=== PATIENT | female | born 1970 | race Caucasian/White ===

== ENCOUNTER 2017-01-19 13:57 | Emergency (ER) | payer MEDICAID ==
[2017-01-19] MEDS ORDERED: OXYCODONE-ACETAMINOPHEN 5-325 MG TABLET PO ONE (15:21)
--- NOTE | 2017-01-19 15:23 | ER Document Report ---
ED Medical Screen (RME) - General Chief Complaint: Flank Pain Stated Complaint: BACK PAIN Time Seen by Provider: 01/19/17 15:17 Notes: 46-year-old female with 2 day history of right low back pain. States gabapentin for disc bulging in her back and neck. She reports some chills and nausea. Exam shows very tender to palpate the right paravertebral lumbar back muscles and the flank back muscles over the ribs and down below the ribs. Skin does not have rash and is not sensitive. I have greeted and performed a rapid initial assessment of this patient. A comprehensive ED assessment and evaluation of the patient, analysis of test results and completion of the medical decision making process will be conducted by additional ED providers. TRAVEL OUTSIDE OF THE [place] IN LAST 30 DAYS: No - Related Data Allergies/Adverse Reactions: No Known Allergies Allergy (Verified 01/19/17 14:01) Past Medical History - Social History Family history: Arthritis, CAD, CVA, DM, Hyperlipidemia, Hypertension Pulmonary Medical History: Reports: Hx Asthma Endocrine Medical History: Reports: Hx Diabetes Mellitus Type 2 Renal/ Medical History: Denies: Hx Ovarian Cysts, Hx Peritoneal Dialysis, Hx Pelvic Inflammatory Disease Past Surgical History: Reports: Hx Tubal Ligation - Immunizations Immunizations up to date: Yes Hx Diphtheria, Pertussis, Tetanus Vaccination: Yes Physical Exam - Vital signs Vitals: Temp Pulse Resp BP Pulse Ox 98.8 F 79 20 136/84 H 99 01/19/17 14:03 01/19/17 14:03 01/19/17 14:03 01/19/17 14:03 01/19/17 14:03 Course - Vital Signs Vital signs: Temp Pulse Resp BP Pulse Ox 98.8 F 79 20 136/84 H 99 01/19/17 14:03 01/19/17 14:03 01/19/17 14:03 01/19/17 14:03 01/19/17 14:03
[2017-01-19 16:06] LABS: APPEARANCE,URINE CLEAR; BILIRUBIN,URINE NEGATIVE (NEGATIVE); GLUCOSE, URINE NEGATIVE (NEGATIVE); KETONES,URINE NEGATIVE (NEGATIVE); LEUKOCYTE ESTERASE,URINE NEGATIVE (NEGATIVE); NITRITE,URINE NEGATIVE (NEGATIVE); PROTEIN,URINE NEGATIVE (NEGATIVE); URINE SPECIFIC GRAVITY 1.003; UROBILINOGEN,URINE NEGATIVE mg/dL (<2.0)
[2017-01-19] MEDS ORDERED: LIDOCAINE 4% TOPICAL SOLN 50 ML TOP ONE (17:18)
[2017-01-19] MEDS ORDERED: NAPROXEN 250 MG TABLET PO ONE (17:18)
[2017-01-19] MEDS ORDERED: ONDANSETRON 4 MG TAB.RAPDIS PO ONE (17:18)
--- NOTE | 2017-01-19 17:22 | ER Document Report ---
ED GI/ - General Chief Complaint: Flank Pain Stated Complaint: BACK PAIN Time Seen by Provider: 01/19/17 15:17 Notes: The patient is a 46-year-old female, past medical history bulging cervical disks , bulging lumbar disc and prior kidney stones, presents with 2 days of right flank pain radiating to her groin and right low back pain with nausea. She took Motrin with some relief of her symptoms. She also was started on Neurontin last week by her primary care physician for peripheral neuropathy. She denies chest pain, shortness of breath, vomiting, dysuria, hematuria, diarrhea, constipation, difficulty walking, chest pain or shortness of breath. TRAVEL OUTSIDE OF THE [place] IN LAST 30 DAYS: No - Related Data Allergies/Adverse Reactions: No Known Allergies Allergy (Verified 01/19/17 14:01) Home Medications: Current Home Medications Gabapentin [Neurontin 300 mg Capsule] 300 mg PO Q12 01/19/17 [History] Past Medical History - General Information source: Patient - Social History Smoking Status: Never Smoker Frequency of alcohol use: None Drug Abuse: None Family History: Reviewed & Not Pertinent Pulmonary Medical History: Reports: Hx Asthma Endocrine Medical History: Reports: Hx Diabetes Mellitus Type 2 Renal/ Medical History: Reports: Hx Kidney Stones. Denies: Hx Ovarian Cysts, Hx Peritoneal Dialysis, Hx Pelvic Inflammatory Disease Past Surgical History: Reports: Hx Orthopedic Surgery - right knee, Hx Tubal Ligation - Immunizations Immunizations up to date: Yes Hx Diphtheria, Pertussis, Tetanus Vaccination: Yes Review of Systems - Review of Systems Notes: REVIEW OF SYSTEMS: CONSTITUTIONAL: -fevers, -chills EENT: -eye pain, -difficulty swallowing, -nasal congestion CARDIOVASCULAR:-chest pain, -syncope. RESPIRATORY: -cough, -SOB GASTROINTESTINAL: -abdominal pain, +nausea, -vomiting, -diarrhea GENITOURINARY: -dysuria, -hematuria MUSCULOSKELETAL: +right back pain, -neck pain SKIN: -rash or skin lesions. HEMATOLOGIC: -easy bruising or bleeding. LYMPHATIC: -swollen, enlarged glands. NEUROLOGICAL: -altered mental status or loss of consciousness, -headache, - neurologic symptoms PSYCHIATRIC: -anxiety, -depression. ALL OTHER SYSTEMS REVIEWED AND NEGATIVE. Physical Exam - Vital signs Vitals: Temp Pulse Resp BP Pulse Ox 98.8 F 79 20 136/84 H 99 01/19/17 14:03 01/19/17 14:03 01/19/17 14:03 01/19/17 14:03 01/19/17 14:03 - Notes Notes: PHYSICAL EXAMINATION: GENERAL: Mild distress. HEAD: Atraumatic, normocephalic. EYES: Pupils equal round and reactive to light, extraocular movements intact, sclera anicteric, conjunctiva are normal. ENT: nares patent, oropharynx clear without exudates. Moist mucous membranes. NECK: Normal range of motion, supple without lymphadenopathy LUNGS: Breath sounds clear to auscultation bilaterally and equal. No wheezes rales or rhonchi. HEART: Regular rate and rhythm without murmurs ABDOMEN: Soft, nontender, normoactive bowel sounds. No guarding, no rebound. No masses appreciated. BACK: Right lower paraspinal lumbar tenderness and spasming EXTREMITIES: Normal range of motion, no pitting or edema. No cyanosis. NEUROLOGICAL: Cranial nerves grossly intact. Normal speech, normal gait. Normal sensory and motor exams. PSYCH: Normal mood, normal affect. SKIN: Warm, Dry, normal turgor, no rashes or lesions noted. Course - Re-evaluation Re-evalutation: Peers well. No evidence of obstructing renal stones or infected kidney stones. UA clean. Provided her with prescription for Lidoderm patch, inflammatory and follow-up with her primary care physician. Suspect her symptoms may be related to her right paraspinal spasms. - Vital Signs Vital signs: Temp Pulse Resp BP Pulse Ox 98.8 F 79 18 136/84 H 99 01/19/17 14:03 01/19/17 14:03 01/19/17 17:00 01/19/17 14:03 01/19/17 14:03 - Diagnostic Test Radiology reviewed: Image reviewed, Reports reviewed Radiology results interpreted by me: CT A/P: Non-obstructing right renal calculi, perinephric stranding or hydronephrosis Discharge - Discharge Clinical Impression: Right low back pain Qualifiers: Chronicity: unspecified Sciatica presence: with sciatica Sciatica laterality: sciatica of right side Qualified Code(s): M54.41 - Lumbago with sciatica, right side Condition: Stable Disposition: HOME, SELF-CARE Additional Instructions: LOW BACK PAIN: Three out of every four people will have an episode of disabling back pain during their lifetime. Most commonly the pain is due to straining of the muscles and ligaments in the low back. Usual treatment includes: (1) Rest on a firm surface. Avoid lying on your stomach. (2) Ice pack the painful area. After a few days, gentle heat may be used intermittently to relax the area, or ice packs can be continued. (3) Medication may be needed -- muscle relaxers and antiinflammatory medicines are commonly used. (4) As the back improves, exercises are prescribed to strengthen the back and abdominal muscles. Your doctor will advise you on the proper care for your back at each stage in your recovery. You may be better in a few days -- or healing may take several weeks. If new symptoms of a "herniated disc" (radiation of pain, numbness, or tingling down the back of the leg or weakness in the leg) occur, you should be re-examined. Further testing may be necessary. MUSCLE RELAXERS: Muscle relaxing medications are usually prescribed for acute muscle spasm or injury to the neck and back. They are often combined with antiinflammatory pain medication for increased relief. You may stop the muscle relaxer when the pain and stiffness have improved. Start the medication again if spasms recur. Muscle relaxers may cause drowsiness, especially with the first dose. Do not operate machinery or drive while under the effects of the medication. Most muscle relaxers last up to 24 hours. Do not combine the medication with alcohol. ICE PACKS: Apply ice packs frequently against the painful area. Many different schedules are recommended, such as "20 minutes on, 20 minutes off" or "one hour ice, two hours rest." If you need to work, you may need to go longer between ice treatments. You should plan to have the area ice packed AT LEAST one fourth of the time. The ice should be applied over the wrap, tape, or splint, or over a layer of cloth -- not directly against the skin. Some ice bags have a built-in cloth and can be put directly on the skin. WARM PACKS: After approximately two days, apply gentle heat (such as a heating pad or hot water bottle) for about 20 to 30 minutes about every two hours -- at least four times daily. Warmth and elevation will help you make a more rapid recovery , and will ease the pain considerably. Do not use HOT heat, and never apply heat for longer than 30 minutes. The continuous heat can invisibly damage skin and muscles -- even when no burn is seen on the surface. Damaged muscles can make you MORE sore. FOLLOW-UP CARE: If you have been referred to a physician for follow-up care, call the physician s office for an appointment as you were instructed or within the next two days. If you experience worsening or a significant change in your symptoms, notify the physician immediately or return to the Emergency Department at any time for re-evaluation. Prescriptions: Lidocaine [Lidoderm 5% (700 mg) Transdermal Patch] 1 patch TP DAILY #10 adh..patch Ondansetron [Zofran Odt 4 mg Tablet] 1 - 2 tab PO Q4H PRN #15 tab.rapdis PRN Reason: For Nausea/Vomiting
[2017-01-19] MEDS ORDERED: LIDOCAINE 5% (700 MG) TRANSDERMAL ADH..PATCH TP ONE (17:34)
--- NOTE | 2017-01-19 17:42 | RADIOLOGY REPORT (SQ) ---
EXAM DESCRIPTION: CT ABD/PELVIS NO ORAL OR IV COMPLETED DATE/TIME: 01/19/2017 5:31 pm REASON FOR STUDY: right flank pain radiating into groin COMPARISON: None. TECHNIQUE: CT scan of the abdomen and pelvis performed without intravenous or oral contrast. Images reviewed with lung, soft tissue, and bone windows. Reconstructed coronal and sagittal MPR images revi ewed. All images stored on PACS. All CT scanners at this facility use dose modulation, iterative reconstruction, and/or weight based d osing when appropriate to reduce radiation dose to as low as reasonably achievable (ALARA). [facility]: Dose Right [facility]: CareDose [facility]: Dose Right [facility]: Teradose 4D [facility]: Novalys RADIATION DOSE: 15.06mGy. LIMITATIONS: None. FINDINGS: LOWER CHEST: No significant findings. No nodules or infiltrates. NON-CONTRASTED LIVER, SPLEEN, ADRENALS: Evaluation limited by lack of IV contrast. No identified sign ificant masses. PANCREAS: No masses. No peripancreatic inflammatory changes. GALLBLADDER: No identified stones by CT criteria. No inflammatory changes to suggest cholecystitis. RIGHT KIDNEY AND URETER: No suspicious masses. Assessment limited by lack of IV contrast. There are small nonobstructing right renal calculi. No hydronephrosis or hydroureter. LEFT KIDNEY AND URETER: No suspicious masses. Assessment limited by lack of IV contrast. There are small nonobstructing left renal calculi. No hydronephrosis or hydroureter. AORTA AND RETROPERITONEUM: No aneurysm. No retroperitoneal masses or adenopathy. BOWEL AND PERITONEAL CAVITY: No obvious masses or inflammatory changes. No free fluid. APPENDIX: Normal. PELVIS, BLADDER, AND ABDOMINAL WALL:No abnormal masses. No free fluid. Bladder normal. BONES: No significant findings. OTHER: No other significant finding. IMPRESSION: Small bilateral nonobstructing renal calculi. No hydronephrosis. No perinephric strand ing. No ureteral stones. TECHNICAL DOCUMENTATION: JOB ID: [id number] Quality ID # [id number]: Final reports with documentation of one or more dose reduction techniques (e.g., Au tomated exposure control, adjustment of the mA and/or kV according to patient size, use of iterative reconstruction technique) 2010 [employer]- All Rights Reserved
[2017-01-19 18:43] VITALS: BP 128/78
== END 2017-01-19 18:43 | disposition home or self-care (01) ==
LOC: ER 13:57
DX: M54.41 Lumbago with sciatica, right side (principal); R10.30 Lower abdominal pain, unspecified; N20.0 Calculus of kidney; R11.0 Nausea; R25.2 Cramp and spasm; E11.40 Type 2 diabetes mellitus with diabetic neuropathy, unspecified; J45.909 Unspecified asthma, uncomplicated
CPT/HCPCS: 99284; 81001; 74176; S0119; J3490 ×2

== ENCOUNTER → 2017-04-30 | Outpatient (CLI) | payer MEDICAID ==
--- NOTE | 2017-04-30 11:05 | WOMENS IMAGING REPORT ---
EXAM DESCRIPTION: TRANSVAGINAL ULTRASOUND COMPLETED DATE/TIME: 04/30/2017 9:57 am REASON FOR STUDY: VAGINAL BLEEDING N93.9 ABNORMAL UTERINE AND VAGINAL BLEEDING, UNSPECIFIED COMPARISON: None. TECHNIQUE: Dynamic and static grayscale images acquired of the pelvis via transvaginal approach and recorded on PACS. Additional selected color Doppler and spectral images recorded. LIMITATIONS: None. FINDINGS: UTERUS: Contour normal. No mass. ENDOMETRIAL STRIPE: Questionable small amount of debris versus a polyp. CERVIX: No nabothian cysts. RIGHT OVARY: There is 14 mm follicular cyst. RIGHT OVARY DOPPLER: Normal arterial vascular flow without evidence for torsion. LEFT OVARY: Not seen. LEFT OVARY DOPPLER: Ovary not seen. FREE FLUID: None noted. OTHER: No other significant finding. MEASUREMENTS: UTERUS: 9.7 x 3.9 x 6.5 cm. ENDOMETRIAL STRIPE: 7 mm RIGHT OVARY: 2.9 x 2.2 x 2.4 cm LEFT OVARY: Not seen IMPRESSION: Questionable polyp versus debris within the endometrial canal. TECHNICAL DOCUMENTATION: JOB ID: [id number] [employer]- All Rights Reserved
== END ==
LOC: WI 08:39
PROVIDERS: ATTEND Family Medicine
DX: N93.9 Abnormal uterine and vaginal bleeding, unspecified (principal)
CPT/HCPCS: 76830

== ENCOUNTER 2017-06-29 08:28 | Day surgery (SDC) | payer MEDICAID ==
[2017-06-22 12:02] LABS: APPEARANCE,URINE CLEAR; BILIRUBIN,URINE NEGATIVE (NEGATIVE); GLUCOSE, URINE NEGATIVE (NEGATIVE); KETONES,URINE NEGATIVE (NEGATIVE); LEUKOCYTE ESTERASE,URINE NEGATIVE (NEGATIVE); NITRITE,URINE NEGATIVE (NEGATIVE); PROTEIN,URINE NEGATIVE (NEGATIVE); UROBILINOGEN,URINE NEGATIVE mg/dL (<2.0)
[2017-06-22 12:07] LABS: HEMATOCRIT 38.7 % (36.0-47.0); HEMOGLOBIN 13.5 g/dL (12.0-15.5); HGB HCT DIFFERENCE 1.8; MEAN CORPUSCULAR HEMOGLOBIN 30.9 pg (27.0-33.4); MEAN CORPUSCULAR HGB CONC 34.9 g/dL (32.0-36.0); MEAN CORPUSCULAR VOLUME 89 fl (80-97); RED BLOOD COUNT 4.37 10^6/uL (3.72-5.28); RED CELL DISTRIBUTION WIDTH 13.5 % (11.5-14.0); WHITE BLOOD COUNT 8.7 10^3/uL (4.0-10.5)
[~2017-06-29 08:28] MED LIST: RINGERS SOLUTION,LACTATED 1,000 ML IV PRN
[2017-06-29] MEDS ORDERED: LIDOCAINE 1% INJ-PF (10 MG/ML) 30 ML SDV ONE ×2 (08:39→09:24)
[2017-06-29] MEDS ORDERED: FENTANYL CITRATE INJ/PF 100 MCG/2 ML AMPUL ONE ×2 (09:08→11:02)
[2017-06-29] MEDS ORDERED: MIDAZOLAM 2 MG/2 ML INJ ONE (09:08)
[2017-06-29] MEDS ORDERED: DEXAMETHASONE SOD PHOSPHATE INJ 4 MG/1 ML VIAL ONE (09:08)
[2017-06-29] MEDS ORDERED: PROPOFOL INJ 200 MG/20 ML VIAL IV ONE (09:08)
[2017-06-29] MEDS ORDERED: ONDANSETRON HCL INJ/PF 4 MG/2 ML SDV ONE (09:08)
[2017-06-29] MEDS ORDERED: IBUPROFEN INJ 800 MG/8 ML VIAL IV ONE (09:09)
[2017-06-29] MEDS ORDERED: FENTANYL CITRATE INJ/PF 100 MCG/2 ML AMPUL IV PRN ×2 (10:39)
[2017-06-29] MEDS ORDERED: OXYCODONE-ACETAMINOPHEN 5-325 MG TABLET PO PRN ×4 (10:39→11:01)
[2017-06-29] MEDS ORDERED: MEPERIDINE HCL/PF INJ 25 MG/1 ML DISP.SYRIN IV PRN (10:39)
[2017-06-29] MEDS ORDERED: MORPHINE SULFATE 10 MG/ML INJ IV PRN (10:39)
[2017-06-29] MEDS ORDERED: DIPHENHYDRAMINE HCL 50 MG/ML VIAL IV PRN (10:39)
[2017-06-29] MEDS ORDERED: PROMETHAZINE HCL INJ 25 MG/1 ML VIAL IV PRN ×2 (10:39)
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
[2017-06-29] MEDS ORDERED: RINGERS SOLUTION,LACTATED 1,000 ML IV PRN (10:59)
[2017-06-29] MEDS ORDERED: IBUPROFEN 800 MG TABLET PO PRN (11:00)
[2017-06-29] MEDS ORDERED: MORPHINE SULFATE 10 MG/ML INJ IM PRN (11:00)
[2017-06-29] MEDS: FENTANYL CITRATE INJ/PF 100 MCG/2 ML AMPUL IV PRN ×2 (11:02→11:12)
[2017-06-29 13:54] VITALS: BP 134/70
== END 2017-06-29 12:55 | disposition home or self-care (01) ==
LOC: OROUT 08:28
PROVIDERS: ATTEND Obstetrics & Gynecology
PROC: 0U5B8ZZ Destruction of Endometrium, Via Natural or Artificial Opening Endoscopic (ICD-10-PCS; principal; 2017-06-29 10:00)
DX: N93.8 Other specified abnormal uterine and vaginal bleeding (principal); Z79.899 Other long term (current) drug therapy; D64.9 Anemia, unspecified; J45.909 Unspecified asthma, uncomplicated; M19.90 Unspecified osteoarthritis, unspecified site
CPT/HCPCS: 36415; 85027; 81025; 81001; 88305 ×2; 58563; J2250; J1100; J3010; J3490; J2405; J2704; J1741; 952

== ENCOUNTER 2018-01-19 22:07 | Emergency (ER) | payer OTHER, MEDICAID ==
[2018-01-19 22:23] VITALS: BP 152/86
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
== END 2018-01-20 00:16 | disposition home or self-care (01) ==
LOC: ER 22:07
DX: S16.1XXA Strain of muscle, fascia and tendon at neck level, initial encounter (principal); S09.90XA Unspecified injury of head, initial encounter; M54.2 Cervicalgia; R51 Headache; V43.32XA Unspecified car occupant injured in collision with other type car in nontraffic accident, initial encounter; Y92.511 Restaurant or cafe as the place of occurrence of the external cause; R03.0 Elevated blood-pressure reading, without diagnosis of hypertension; R42 Dizziness and giddiness; R11.0 Nausea; G89.29 Other chronic pain; J45.909 Unspecified asthma, uncomplicated; E11.9 Type 2 diabetes mellitus without complications; Z98.1 Arthrodesis status
CPT/HCPCS: 99283; 70450; 72125; L0120

== ENCOUNTER 2018-05-02 12:38 | Emergency (ER) | payer MEDICAID, OTHER ==
[2018-05-02 12:49] VITALS: BP 141/93
[2018-05-02] MEDS ORDERED: LIDOCAINE 1%/EPINEPHRINE INJ 20 ML VIAL INJ ONE (13:10)
--- NOTE | 2018-05-02 13:16 | ER Document Report ---
ED General - General Chief Complaint: Abscess Stated Complaint: POSSIBLE ABSCESS Time Seen by Provider: 05/02/18 13:04 TRAVEL OUTSIDE OF THE [place] IN LAST 30 DAYS: No - HPI Notes: Patient is a 48-year-old female that presents to the emergency department for chief complaint of left thigh abscess. Patient started noticing a painful red area on her medial left thigh 4 days ago. The following day she states her daughter squeezed it and there was purulent discharge. Since then it has become more red and swollen. Yesterday she felt like she may have had a fever and states her temperature was 99.8. She has not taken any [id number] medication for her symptoms. She does have a history of abscess in the past that has required incision and drainage. Past Medical History: Diabetes, asthma Past Surgical History: Reviewed in chart Social History: Denies drugs alcohol and tobacco Family History: Reviewed and noncontributory for presenting illness Allergies: Reviewed, see documented allergy list. REVIEW OF SYSTEMS: CONSTITUTIONAL : No fever No chills No diaphoresis No recent illness EENT: No vision changes No congestion No sore throat CARDIOVASCULAR: No chest pain No palpitations RESPIRATORY: No shortness of breath No cough No difficulty breathing GASTROINTESTINAL: No abdominal pain No nausea No vomiting No diarrhea GENITOURINARY: No dysuria No hematuria No difficulty urinating MUSCULOSKELETAL: No back pain No leg pain No arm pain SKIN: No rashes Left thigh abscess LYMPHATIC: No swollen, enlarged glands. NEUROLOGICAL: No lightheadedness No headache No weakness No paresthesias PSYCHIATRIC: No anxiety No depression PHYSICAL EXAMINATION: Vital signs reviewed, nursing noted reviewed. GENERAL: Well-appearing, well-nourished and in no acute distress. HEAD: Atraumatic, normocephalic. EYES: Eyes appear normal, extraocular movements intact, sclera anicteric, conjunctiva are normal. ENT: nares patent, oropharynx clear without exudates. Moist mucous membranes. NECK: Normal range of motion, supple without lymphadenopathy LUNGS: Breath sounds clear to auscultation bilaterally and equal. No wheezes rales or rhonchi. HEART: Regular rate and rhythm without murmurs ABDOMEN: Soft, nontender, normoactive bowel sounds. No rebound, guarding, or rigidity. No masses appreciated. EXTREMITIES: Nontender, good range of motion, no pitting or edema. NEUROLOGICAL: No focal neurological deficits. Moves all extremities spontaneously Motor and sensory grossly intact on exam. PSYCH: Normal mood, normal affect. SKIN: Warm, Dry, normal turgor. Left medial thigh erythema with 4 cm x 4 cm area of central induration and fluctuance, tender to palpation, no active drainage or bleeding - Related Data Allergies/Adverse Reactions: seasonal allergies Allergy (Uncoded 05/02/18 12:41) Past Medical History - Social History Smoking Status: Never Smoker Chew tobacco use (# tins/day): No Frequency of alcohol use: None Drug Abuse: None Family History: Reviewed & Not Pertinent Patient has suicidal ideation: No Patient has homicidal ideation: No - Past Medical History Cardiac Medical History: Denies: Hx Coronary Artery Disease, Hx Heart Attack, Hx Hypertension Pulmonary Medical History: Reports: Hx Asthma, Hx Bronchitis - hx of acute bronchitis, Hx Pneumonia - hx of Denies: Hx COPD Neurological Medical History: Denies: Hx Cerebrovascular Accident, Hx Seizures Endocrine Medical History: Reports: Hx Diabetes Mellitus Type 2 Renal/ Medical History: Reports: Hx Kidney Stones. Denies: Hx Ovarian Cysts, Hx Peritoneal Dialysis, Hx Pelvic Inflammatory Disease Musculoskeletal Medical History: Denies Hx Arthritis Past Surgical History: Reports: Hx Orthopedic Surgery - right knee, Hx Tubal Ligation - Immunizations Immunizations up to date: Yes Hx Diphtheria, Pertussis, Tetanus Vaccination: Yes Review of Systems - Review of Systems Notes: Dictated Physical Exam - Vital signs Vitals: Temp Pulse Resp BP Pulse Ox 98.4 F 107 H 18 141/93 H 96 05/02/18 12:47 05/02/18 12:47 05/02/18 12:47 05/02/18 12:47 05/02/18 12:47 - Notes Notes: Dictated Course - Re-evaluation Re-evalutation: 05/02/18 13:14 Vitals reviewed. Nursing notes reviewed. Patient has a left medial thigh abscess, incision and drainage was performed, see procedure note. Patient has diabetes and there is surrounding cellulitis she will therefore be started on antibiotics as well. Patient discharged home on Bactrim and Keflex. She will return for new or worsening symptoms. Stable at time of discharge - Vital Signs Vital signs: Temp Pulse Resp BP Pulse Ox 98.4 F 107 H 18 141/93 H 96 05/02/18 12:47 05/02/18 12:47 05/02/18 12:47 05/02/18 12:47 05/02/18 12:47 Procedures - Incision and Drainage Left Thigh Time completed: 13:28 Type: Simple Anesthetic type: 1% Lidocaine w/epi mL's of anesthetic: 5 Blade size: 11 I&D procedure: Betadine prep applied Incision Method: Incision made by scalpel Amount/type of drainage: moderate purulent drainage Notes: 05/02/18 13:29 1.0 cm linear incision made over abscess. Moderate amount of purulent discharge expressed. Loculations broken up with a Kim clamp. Area irrigated. Packed with iodoform gauze. Bulky dressing placed. Patient tolerated well with no immediate complications. Discharge - Discharge Clinical Impression: Cellulitis of left thigh, Abscess of left thigh Condition: Stable Disposition: HOME, SELF-CARE Instructions: Abscess ([facility]), Cephalexin ([facility]), Post Incision and Drainage, Trimethoprim-Sulfa ([facility]) Additional Instructions: Please return to the emergency department if you have any worsening, or concern of your symptoms. Please return to the emergency department if you develop chest pain, difficulty breathing, severe abdominal pain, or ongoing vomiting. Please follow-up with your primary care physician in 2-3 days and any other recommended physicians. If prescribed, take all medications as directed. If you have any questions or concerns do not hesitate to return the emergency department for evaluation. You can remove the packing in 24 hours if it has not fallen out on its own. If packing falls out leave it out. Prescriptions: Cephalexin Monohydrate [Keflex 500 mg Capsule] 500 mg PO Q6H 5 Days capsule Sulfamethoxazole/Trimethoprim [Bactrim Ds Tablet] 1 each PO BID #10 tablet Referrals: MORRO DOSHI MD [Primary Care Provider] - Follow up as needed
== END 2018-05-02 13:42 | disposition home or self-care (01) ==
LOC: ER 12:38
DX: L02.416 Cutaneous abscess of left lower limb (principal); L03.116 Cellulitis of left lower limb; E11.9 Type 2 diabetes mellitus without complications; J45.909 Unspecified asthma, uncomplicated
CPT/HCPCS: 99283; 10060; A6266; J3490

== ENCOUNTER → 2018-09-27 | Outpatient (CLI) | payer MEDICAID ==
[2018-09-27 17:51] LABS: ABSOLUTE EOSINOPHILS # (AUTO) 0.1 10^3/uL (0.0-0.6); ABSOLUTE LYMPHOCYTES (AUTO) 1.2 10^3/uL (0.5-4.7); ABSOLUTE MONOCYTES (AUTO) 0.3 10^3/uL (0.1-1.4); ABSOLUTE NEUT (AUTO) 4.6 10^3/uL (1.7-8.2); BASOPHILS % (AUTO) 0.7 % (0-2); EOSINOPHILS % (AUTO) 1.5 % (0-6); HEMATOCRIT 36.4 % (36.0-47.0); HEMOGLOBIN 12.8 g/dL (12.0-15.5); LYMPHOCYTES % (AUTO) 19.5 % (13-45); MEAN CORPUSCULAR HEMOGLOBIN 30.4 pg (27.0-33.4); MEAN CORPUSCULAR HGB CONC 35.2 g/dL (32.0-36.0); MEAN CORPUSCULAR VOLUME 86 fl (80-97); MONOCYTES % (AUTO) 5.5 % (3-13); PLATELET COUNT 175 10^3/uL (150-450); RED BLOOD COUNT 4.21 10^6/uL (3.72-5.28); RED CELL DISTRIBUTION WIDTH 13.4 % (11.5-14.0); SEGMENTED NEUTROPHILS % (AUTO) 72.8 % (42-78); TOTAL CELLS COUNTED % (AUTO) 100 %; WHITE BLOOD COUNT 6.4 10^3/uL (4.0-10.5)
[2018-09-27 18:37] LABS: ERYTHROCYTE SEDIMENTATION RATE 15 mm/hr (0-20)
== END ==
LOC: OD 15:57
PROVIDERS: ATTEND Orthopaedic Surgery
DX: Z96.651 Presence of right artificial knee joint (principal)
CPT/HCPCS: 36415; 85025; 85652; 86140

== ENCOUNTER 2019-09-19 23:11 | Inpatient (IN) | payer MEDICAID, OTHER ==
[2019-09-19] MEDS ORDERED: NORMAL SALINE 1000 ML 1,000 ML IV ONE (23:51)
[2019-09-19] MEDS ORDERED: DILTIAZEM HCL INJ 25 MG/5 ML VIAL IV ONE (23:51)
[2019-09-19] MEDS ORDERED: ONDANSETRON HCL INJ/PF 4 MG/2 ML SDV IV ONE (23:52)
[2019-09-19 23:54] LABS: ABSOLUTE BASOPHILS # (AUTO) 0.1 10^3/uL (0.0-0.2); ABSOLUTE EOSINOPHILS # (AUTO) 0.2 10^3/uL (0.0-0.6); ABSOLUTE LYMPHOCYTES (AUTO) 2.1 10^3/uL (0.5-4.7); ABSOLUTE MONOCYTES (AUTO) 0.5 10^3/uL (0.1-1.4); ABSOLUTE NEUT (AUTO) 3.5 10^3/uL (1.7-8.2); BASOPHILS % (AUTO) 0.8 % (0-2); EOSINOPHILS % (AUTO) 2.8 % (0-6); HEMATOCRIT 36.8 % (36.0-47.0); HEMOGLOBIN 12.9 g/dL (12.0-15.5); LYMPHOCYTES % (AUTO) 33.6 % (13-45); MEAN CORPUSCULAR HEMOGLOBIN 31.2 pg (27.0-33.4); MEAN CORPUSCULAR VOLUME 89 fl (80-97); MONOCYTES % (AUTO) 7.4 % (3-13); PLATELET COUNT 186 10^3/uL (150-450); RED BLOOD COUNT 4.13 10^6/uL (3.72-5.28); RED CELL DISTRIBUTION WIDTH 13.7 % (11.5-14.0); SEGMENTED NEUTROPHILS % (AUTO) 55.4 % (42-78); TOTAL CELLS COUNTED % (AUTO) 100 %; WHITE BLOOD COUNT 6.3 10^3/uL (4.0-10.5)
[2019-09-20 00:20] LABS: ALKALINE PHOSPHATASE 46 U/L (38-126); ANION GAP 7 (5-19); ASPARTATE AMINO TRANSFERASE 20 U/L (14-36); BILIRUBIN,DIRECT 0.3 mg/dL (0.0-0.4); BILIRUBIN,TOTAL 0.4 mg/dL (0.2-1.3); BLOOD UREA NITROGEN 19 mg/dL (7-20); CALCIUM 9.3 mg/dL (8.4-10.2); CARBON DIOXIDE 30 mmol/L (22-30); CHLORIDE 103 mmol/L (98-107); CREATINE KINASE 54 U/L (30-135); GLUCOSE 103 mg/dL (75-110); POTASSIUM 3.7 mmol/L (3.6-5.0); TOTAL PROTEIN 6.5 g/dL (6.3-8.2)
--- NOTE | 2019-09-20 00:26 | ER Document Report ---
ED General - General Chief Complaint: Chest Pain > 30 Stated Complaint: CHEST PAIN WITH AFIB Time Seen by Provider: 09/19/19 23:31 Primary Care Provider: SHANKAR STARKS MD [ACTIVE STAFF] - Follow up as needed Notes: 49-year-old female presents emergency department complaining of rapid heartbeat with pounding chest pain associated with rapid heartbeat starting this evening after an argument with 1 of her daughters. States it started around 8 PM, she took her daily metoprolol early but it has not relieved her symptoms. Patient does have a history of atrial fibrillation, takes metoprolol twice a day for this. States that despite the metoprolol she gets frequent fluttering sensations in her chest and she goes pale and white and gets very dizzy and then it self resolves. Atrial fibrillation was initially diagnosed in January, she had a cardiac catheterization in January which was negative per patient. Currently follows with supervisor machine setter in [place] and primary care physician is Dr. Ennis. Does not take any blood thinners. TRAVEL OUTSIDE OF THE [place] IN LAST 30 DAYS: No - Related Data Allergies/Adverse Reactions: seasonal allergies Allergy (Uncoded 05/02/18 12:41) Home Medications: lyrica. pregabalin. cetirizine. lorazapam. zolpidem tartrate. oxycodone-ACTM. melxociam. tizanidine Past Medical History - General Information source: Patient - Social History Smoking Status: Never Smoker Frequency of alcohol use: None Drug Abuse: None Family History: Reviewed & Not Pertinent Patient has suicidal ideation: No Patient has homicidal ideation: No - Past Medical History Cardiac Medical History: Reports: Hx Atrial Fibrillation Denies: Hx Coronary Artery Disease, Hx Heart Attack, Hx Hypertension Pulmonary Medical History: Reports: Hx Asthma, Hx Bronchitis - hx of acute bronchitis, Hx Pneumonia - hx of Denies: Hx COPD Neurological Medical History: Denies: Hx Cerebrovascular Accident, Hx Seizures Endocrine Medical History: Reports: Hx Diabetes Mellitus Type 2 Renal/ Medical History: Reports: Hx Kidney Stones. Denies: Hx Ovarian Cysts, Hx Peritoneal Dialysis, Hx Pelvic Inflammatory Disease Musculoskeletal Medical History: Denies Hx Arthritis Past Surgical History: Reports: Hx Orthopedic Surgery - right knee, neck, Hx Tubal Ligation - Immunizations Immunizations up to date: Yes Hx Diphtheria, Pertussis, Tetanus Vaccination: Yes Review of Systems - Review of Systems Constitutional: See HPI, Weakness EENT: No symptoms reported Cardiovascular: See HPI, Chest pain, Palpitations, Heart racing Gastrointestinal: No symptoms reported -: Yes All other systems reviewed and negative Physical Exam - Vital signs Vitals: Resp 16 09/19/19 23:22 Interpretation: Tachycardic - Notes Notes: GENERAL: Alert, interacts well. Appears anxious. HEAD: Normocephalic, atraumatic EYES: Pupils equal, round and reactive to light, extraocular movements intact. ENT: Oral mucosa moist, tongue midline. NECK: Full range of motion, supple, trachea midline. LUNGS: Clear to auscultation bilaterally, no wheezes, rales or rhonchi, no respiratory distress. HEART: Tachycardic, irregularly irregular, no murmurs, gallops, rubs. ABDOMEN: Soft, nontender, nondistended, bowel sounds present in all 4 quadrants. EXTREMITIES: Moves all 4 extremities spontaneously, no edema, radial and dorsalis pedis pulses 2/4 bilaterally. No cyanosis. NEUROLOGICAL: Alert and oriented x3, normal speech. PSYCH: Anxious. SKIN: Warm, slightly diaphoretic, normal turgor, no rashes or lesions noted. Course - Re-evaluation Re-evalutation: 09/20/19 00:25 Patient given Cardizem 30 mg IV bolus along with fluids. Heart rate has responded well, patient had some transient hypotension. Patient is feeling significantly better but does still have some soreness in her chest. We will continue to watch to see if fluids and a single Cardizem bolus resolve her tac hycardia or if she ends up needing a drip. Patient is agreeable to this plan. Blood work is pending. 09/20/19 01:44 Heart rate initially responded well, hypotension is resolved, tachycardia has now returned, heart rate ranges between 116 and 145, still A. fib with RVR, patient will be given another slightly smaller bolus of Cardizem and started on drip. I will discuss the patient with the hospitalist Dr. Tapia for admission. 09/20/19 01:44 CBC unremarkable, CMP unremarkable, thyroid function normal, troponin undetectable 09/20/19 01:45 09/20/19 02:[address] Tapia, agrees to accept the patient to the [facility] - Vital Signs Vital signs: Temp Pulse Resp BP Pulse Ox 98.6 F 37 H 107/94 H 100 09/20/19 01:18 09/20/19 01:12 09/20/19 01:12 09/20/19 01:12 - Laboratory Result Diagrams: 09/19/19 23:21 09/19/19 23:21 - EKG Interpretation by Me Additional EKG results interpreted by me: 09/20/19 01:45 EKG shows atrial fibrillation at a rate of 144, disagree with contributor interpretation of a flutter, normal axis, no ST segment elevations, trace ST segment depressions in V2, T wave inversions noted in lead III per my interpretation. Critical Care Note - Critical Care Note Total time excluding time spent on procedures (mins): 40 Discharge - Discharge Clinical Impression: Atrial fibrillation with RVR Condition: Fair Disposition: ADMITTED INPATIENT Admitting Provider: Willie (Hospitalist) Unit Admitted: [facility] Referrals: SHANKAR STARKS MD [ACTIVE STAFF] - Follow up as needed
[2019-09-20 00:32] LABS: CREATINE KINASE MB 1.02 ng/mL (<4.55); TROPONIN I < 0.012 ng/mL
[2019-09-20 00:37] LABS: FREE T3 4.2 pg/mL (2.77-5.27); FREE T4 (FREE THYROXINE) 0.95 ng/dL (0.78-2.19)
[2019-09-20 00:51] LABS: THYROID STIMULATING HORMONE 3.09 uIU/mL (0.47-4.68)
[2019-09-20] MEDS ORDERED: DILTIAZEM HCL/D5W 125 MG/125 ML RTUINJ IV PRN ×2 (01:40→03:15)
[2019-09-20] MEDS ORDERED: DILTIAZEM HCL INJ 25 MG/5 ML VIAL IV ONE (01:43)
[2019-09-20] MEDS ORDERED: NORMAL SALINE 1000 ML 1,000 ML IV ONE (02:18)
[2019-09-20] MEDS ORDERED: DEXTROSE 40% GEL 15 GM TUBE PO PRN ×2 (03:09)
[2019-09-20] MEDS ORDERED: GLUCAGON,HUMAN RECOMB 1 MG INJ IM PRN (03:09)
[2019-09-20] MEDS ORDERED: MAG HYDROX/AL HYDROX/SIMETH SUSP 30 ML UDCUP PO PRN (03:09)
[2019-09-20] MEDS ORDERED: PROMETHAZINE HCL INJ 25 MG/1 ML VIAL IV PRN (03:09)
[2019-09-20] MEDS ORDERED: DEXTROSE 50%-WATER 25 GM/50 ML DISP.SYRIN IV PRN ×2 (03:09)
[2019-09-20] MEDS ORDERED: TEMAZEPAM 15 MG CAPSULE PO PRN (03:09)
[2019-09-20] MEDS ORDERED: MAGNESIUM HYDROXIDE SUSP 30 ML UDCUP PO PRN (03:09)
[2019-09-20] MEDS ORDERED: ACETAMINOPHEN 325 MG TABLET PO PRN (03:13)
[2019-09-20] MEDS ORDERED: MORPHINE SULFATE 10 MG/ML INJ IV PRN ×3 (03:13)
--- NOTE | 2019-09-20 04:58 | PDOC H&P ---
History of Present Illness Admission Date/PCP: 09/20/19 02:47 MORRO DOSHI MD Patient complains of: Palpitations History of Present Illness: NEHEMIAS SY is a 49 year old female who presented to the emergency room with the acute onset of palpitations. Patient admits that her heart rate jumped rapidly during an argument with her daughter at approximately 8 PM on the evening prior to admission. Her palpitations were severe and she experienced them as a rapid pounding in her chest which was associated with chest tightness/pain and was accompanied by mild nausea, mild dizziness and mild dyspnea. She took her usual metoprolol dose a little early but it did not relieve her symptoms so she came to the emergency room. She has a history of atrial fibrillation and has been taking metoprolol on a regular basis but has noted short episodes of palpitations on a near daily basis. She denies other associated or accompanying signs and symptoms. She admits prior similar symptoms with her atrial fibrillation in the past. She has not identified any additional aggravating or ameliorating factors for her palpitations. In the emergency room she was found to have atrial fibrillation with a rate in the 140s which responded to a bolus dose of Cardizem and IV fluids but did not remain controlled until a Cardizem infusion was added to the therapy. Patient was subsequently admitted to the hospital for further evaluation treatment. Past Medical History Cardiac Medical History: Reports: Atrial Fibrillation Denies: Congestive Heart Failure, Coronary Artery Disease, DVT, Myocardial Infarction, Hyperlipidema, Hypertension, Pulmonary Embolism Pulmonary Medical History: Reports: Asthma, Bronchitis, Pneumonia Denies: Chronic Obstructive Pulmonary Disease (COPD) EENT Medical History: Denies: Cataracts, Ears - Hearing aids Neurological Medical History: Denies: Hemorrhagic CVA, Ischemic CVA, Seizures Endocrine Medical History: Reports: Diabetes Mellitus Type 2, Obesity Denies: Diabetes Mellitus Type 1, Hyperthyroidism, Hypothyroidism Renal/ Medical History: Denies: Chronic Kidney Disease, Nephrolithiasis Malignancy Medical History: Reports: None GI Medical History: Denies: Cirrhosis, Crohn's Disease, Gastroesophageal Reflux Disease, Hepatitis, Peptic Ulcer Disease, Ulcerative Colitis Musculoskeltal Medical History: Reports: Other - Degenerative spinal disc disease Denies: Arthritis, Gout Skin Medical History: Denies: Eczema, Psoriasis Psychiatric Medical History: Denies: Alcohol Dependency, Substance Abuse, Tobacco Dependency Traumatic Medical History: Reports: None Hematology: Reports: Anemia Denies: Bleeding Tendencies Infectious Medical History: Reports: None Past Surgical History Past Surgical History: Reports: Knee Replacement, Orthopedic Surgery - Cervical spine herniated disc surgery, Tubal Ligation Social History Information Source: Patient Lives with: Family Smoking Status: Never Smoker Electronic Cigarette use?: No Frequency of Alcohol Use: None Hx Recreational Drug Use: No Drugs: None Hx Prescription Drug Abuse: No - Advance Directive Resuscitation Status: Full Code Surrogate healthcare decision maker:: Julius Johnson Family History Family History: CAD, DM, Hyperlipidemia, Hypertension, Other - Atrial fibrillation and congestive heart failure. denies: Malignancy Parental Family History Reviewed: Yes Children Family History Reviewed: No Sibling(s) Family History Reviewed.: Yes Medication/Allergy Home Medications: Albuterol Sulfate [Proair HFA] 2 puff IH PRN PRN 06/17/17 Cetirizine HCl [Zyrtec 10 mg Tablet] 1 tab PO PRN PRN 06/17/17 Multivitamin [Multivitamins] 1 each PO DAILY 06/17/17 Oxycodone HCl/Acetaminophen [Oxycodone-Acetaminophen 5-325] 1 each PO ASDIR PRN 06/17/17 Phentermine HCl 37.5 mg PO DAILY 06/17/17 Pregabalin [Lyrica 50 Mg Capsule] 50 mg PO TID 06/17/17 Cephalexin Monohydrate [Keflex 500 mg Capsule] 500 mg PO Q6H 5 Days capsule 05/02/18 Sulfamethoxazole/Trimethoprim [Bactrim Ds Tablet] 1 each PO BID #10 tablet 05/02/18 Allergies/Adverse Reactions: seasonal allergies Allergy (Uncoded 05/02/18 12:41) Review of Systems Constitutional: ABSENT: chills, fever(s) Eyes: ABSENT: visual disturbances, other - Eye pain Ears: ABSENT: hearing changes, other - Ear pain Nose, Mouth, and Throat: ABSENT: headache(s), mouth pain, sore throat Cardiovascular: PRESENT: as per HPI, chest pain, palpitations. ABSENT: dyspnea on exertion, edema, orthropnea Respiratory: PRESENT: as per HPI, dyspnea Gastrointestinal: PRESENT: as per HPI, nausea. ABSENT: abdominal pain, constipation, diarrhea, vomiting Genitourinary: ABSENT: dysuria, hematuria Musculoskeletal: ABSENT: back pain, joint swelling Integumentary: ABSENT: pruritus, rash Neurological: ABSENT: confusion, convulsions, focal weakness, memory loss, syncope Psychiatric: ABSENT: anxiety, depression Endocrine: ABSENT: cold intolerance, heat intolerance, polydipsia, polyphagia, polyuria Hematologic/Lymphatic: ABSENT: easy bleeding, easy bruising Allergic/Immunologic: PRESENT: seasonal rhinorrhea Physical Exam Vital Signs: Temp Pulse Resp BP Pulse Ox 98.6 F 37 H 107/94 H 100 09/20/19 01:18 09/20/19 01:12 09/20/19 01:12 09/20/19 01:12 Intake & Output 09/18/19 09/19/19 09/20/19 23:59 23:59 23:59 Weight 104.326 kg General appearance: PRESENT: no acute distress, cooperative, morbidly obese Head exam: PRESENT: atraumatic, normocephalic Eye exam: PRESENT: conjunctiva pink. ABSENT: conjunctival injection, scleral icterus Ear exam: PRESENT: normal external ear exam. ABSENT: bleeding, drainage Mouth exam: PRESENT: dry mucosa, neck supple Neck exam: ABSENT: thyromegaly, tracheal deviation Respiratory exam: PRESENT: clear to auscultation magdy, symmetrical, unlabored Cardiovascular exam: PRESENT: RRR. ABSENT: clicks, gallop, rubs Pulses: PRESENT: normal radial pulses, normal dorsalis pedis pul Vascular exam: PRESENT: normal capillary refill. ABSENT: pallor GI/Abdominal exam: PRESENT: normal bowel sounds, soft Rectal exam: PRESENT: deferred Extremities exam: ABSENT: joint swelling, pedal edema Musculoskeletal exam: ABSENT: deformity, dislocation Neurological exam: PRESENT: alert, oriented to person, oriented to place, oriented to time, oriented to situation, CN II-XII grossly intact. ABSENT: motor sensory deficit Psychiatric exam: PRESENT: appropriate affect, normal mood Skin exam: PRESENT: dry, intact, warm. ABSENT: jaundice, rash, urticaria Results Laboratory Results: 09/19/19 23:21 09/19/19 23:21 09/19/19 09/19/19 09/19/19 23:21 23:21 23:21 WBC 6.3 RBC 4.13 Hgb 12.9 Hct 36.8 MCV 89 MCH 31.2 MCHC 35.0 RDW 13.7 Plt Count 186 Seg Neutrophils % 55.4 Sodium 140.0 Potassium 3.7 Chloride 103 Carbon Dioxide 30 Anion Gap 7 BUN 19 Creatinine 0.55 Est GFR ( Amer) > 60 Glucose 103 Calcium 9.3 Total Bilirubin 0.4 AST 20 Alkaline Phosphatase 46 Total Protein 6.5 Albumin 4.0 TSH 3.09 Free T4 0.95 Free T3 pg/mL 4.20 09/19/19 09/19/19 23:21 23:21 Creatine Kinase 54 CK-MB (CK-2) 1.02 Troponin I < 0.012 Assessment and Plan - Diagnosis (1) Paroxysmal atrial fibrillation with rapid ventricular response Is this a current diagnosis for this admission?: Yes (2) Chest pain Qualifiers: Chest pain type: unspecified Qualified Code(s): R07.9 - Chest pain, unspecified Is this a current diagnosis for this admission?: Yes (3) Morbid obesity Is this a current diagnosis for this admission?: Yes (4) Diabetes mellitus type 2 in obese Is this a current diagnosis for this admission?: Yes (5) History of anemia Is this a current diagnosis for this admission?: Yes - Plan Summary Summary: Patient is admitted to medical floor where she will be treated with usual supportive and symptomatic cares. She will be maintained on an IV infusion of diltiazem to control her atrial fibrillation. A cardiology consult may be obtained if required. She will receive morphine sulfate 2 to 4 mg IV every 2 hours as needed for control of pain. Serial cardiac enzymes, CBCs, metabolic pr ofiles and magnesium levels will be obtained as needed. Patient's medications will be adjusted as required for ongoing therapy. Before meals and at bedtime Accu-Cheks will be obtained with sliding scale insulin for hyperglycemia and a hypoglycemic protocol in place. Registered dietitian consultation will be obtained for treatment of diabetes and obesity. - Time Time Spent with patient: 25-34 minutes Medications reviewed and adjusted accordingly: Yes Anticipated discharge: Home - Inpatient Certification Based on my medical assessment, after consideration of the patient's partha rbidities, presenting symptoms, or acuity I expect that the services needed warrant INPATIENT care.: Yes I certify that my determination is in accordance with my understanding of Medicare's requirements for reasonable and necessary INPATIENT services [42 CFR 412.3e].: Yes Medical Necessity: Need Close Monitoring Due to Risk of Patient Decompensation, Need For Continuous Telemetry Monitoring, Need for Pain Control, Risk of Complication if Not Cared For in Hospital
[2019-09-20] MEDS ORDERED: INFLUENZA QUAD (6MOS+) 2019-20 VAC 0.5 ML SYR IM ONE (05:10)
[2019-09-20] MEDS: HEPARIN SOD (PORCINE) 5,000 UNIT/ML 1 ML VIAL SUBCUT SCH ×3 (05:20→21:56)
[2019-09-20 08:47] LABS: CREATINE KINASE MB 1.04 ng/mL (<4.55)
[2019-09-20 08:49] LABS: TROPONIN I < 0.012 ng/mL
--- NOTE | 2019-09-20 09:53 | Progress Note ---
Provider Note Provider Note: 09/20/2019 Seen briefly today on rounds as she was just admitted last night after midnight. Admission pulse was 115 early this morning it got up to 144 now is back down to 113. Blood pressure 109/52 and stable oxygen saturation 100% on room air Patient is not symptomatic other than she feels palpitations no shortness of breath no chest pain Tells me she has been trying to take an extra her Lopressor for the last several weeks feeling the palpitations but it has not kept her from becoming more tachycardiac. Patient does have a immigration lawyer in [place] that she saw 2 to 3 months ago. Unfortunately patient's ambulatory meds from home are not in the chart as of this time, therefore they cannot be reconciled. Patient is on a Cardizem drip, soon is going to call the pharmacy and find out what her home dose of metoprolol is. This is been determined I will add that to her Cardizem drip as a scheduled drug. I am checking a hemoglobin A1c since she had an elevated fingerstick glucose 153
[2019-09-20] MEDS: FAMOTIDINE 20 MG TABLET PO SCH ×2 (10:09→21:56)
[2019-09-20] MEDS: DOCUSATE SODIUM 100 MG CAPSULE PO SCH ×2 (10:09→18:28)
[2019-09-20] MEDS: INSULIN REG, HUMAN 100 UNIT/ML 3 ML VIAL (PYX) SUBCUT SCH ×4 (10:09→21:46)
[2019-09-20] MEDS: METOPROLOL SUCCINATE 50 MG TAB.SR.24H PO SCH ×2 (11:27→21:56)
[2019-09-20 15:49] LABS: CREATINE KINASE MB 1.03 ng/mL (<4.55)
[2019-09-20 15:53] LABS: TROPONIN I < 0.012 ng/mL
[2019-09-20] MEDS ORDERED: LORAZEPAM INJ 2 MG/1 ML VIAL ONE (17:55)
[2019-09-20] MEDS ORDERED: LORAZEPAM INJ 2 MG/1 ML VIAL IV ONE (18:45)
[2019-09-20 21:01] LABS: CREATINE KINASE MB 0.87 ng/mL (<4.55)
[2019-09-20 21:03] LABS: TROPONIN I < 0.012 ng/mL
[2019-09-20] MEDS ORDERED: DILTIAZEM HCL 120 MG CAP.SR.24H PO ONE (21:30)
[2019-09-20] MEDS ORDERED: DILTIAZEM HCL 30 MG TABLET PO ONE (21:30)
[2019-09-20] MEDS ORDERED: TEMAZEPAM 15 MG CAPSULE PO SCH (22:00)
[2019-09-20] MEDS ORDERED: CETIRIZINE 10 MG TABLET PO SCH (22:00)
[2019-09-20] MEDS ORDERED: TIZANIDINE HCL 4 MG TABLET PO SCH (22:15)
--- NOTE | 2019-09-20 22:33 | EKG REPORT ---
SEVERITY:- ABNORMAL ECG - A FIB BORDERLINE T ABNORMALITIES, INFERIOR LEADS : Confirmed by: Kwabena Sheppard 20-Sep-2019 22:32:38
--- NOTE | 2019-09-20 22:33 | EKG REPORT ---
SEVERITY:- NORMAL ECG - SINUS RHYTHM : Confirmed by: Kwabena Sheppard 20-Sep-2019 22:32:20
--- NOTE | 2019-09-20 22:50 | Progress Note ---
Provider Note Provider Note: Critical care note: 09/20/2019 Critical care start time: 20:38 Critical care issue: Conversion to normal sinus rhythm from atrial fibrillation Patient was noted by her nurse to have converted from atrial fibrillation to normal sinus rhythm. Nursing staff called me to see the patient and make appropriate adjustments in her medical regiment and confirm her conversion. A 12-lead EKG was obtained which confirmed the conversion to normal sinus rhythm. The patient's blood pressure and heart rate were noted to be stable and she was subsequently treated with oral Cardizem 30 mg p.o. x1 and Cardizem CD 120 mg p.o. x1 now and repeat at bedtime daily. On exam patient's chest was clear to auscultation with nonlabored respirations. Heart showed a regular rate and rhythm without murmurs clicks gallops or rubs. Abdomen is soft with bowel sounds present throughout all 4 quadrants. Extremities reveal no clubbing cyanosis or edema. A lengthy discussion was had with the patient and her significant other who was present in the room concerning her paroxysmal atrial fibrillation and her current conversion back to his normal sinus rhythm and attempts that will be made to maintain ongoing normal sinus rhythm. Critical care end time: 22:22 Total critical care time: 23 minutes
[2019-09-21] MEDS: PREGABALIN 75 MG CAPSULE PO SCH ×2 (00:36→06:00)
[2019-09-21] MEDS: METOPROLOL TARTRATE 25 MG TABLET PO SCH ×2 (00:36→11:05)
[2019-09-21] MEDS: HEPARIN SOD (PORCINE) 5,000 UNIT/ML 1 ML VIAL SUBCUT SCH (06:00)
[2019-09-21 06:18] LABS: ANION GAP 6 (5-19); BLOOD UREA NITROGEN 12 mg/dL (7-20); CALCIUM 9.1 mg/dL (8.4-10.2); CARBON DIOXIDE 29 mmol/L (22-30); CHLORIDE 108 mmol/L (98-107); GLUCOSE 100 mg/dL (75-110); POTASSIUM 3.9 mmol/L (3.6-5.0)
[2019-09-21 06:21] LABS: HEMATOCRIT 34.8 % (36.0-47.0); HEMOGLOBIN 12.1 g/dL (12.0-15.5); MEAN CORPUSCULAR HGB CONC 34.8 g/dL (32.0-36.0); MEAN CORPUSCULAR VOLUME 89 fl (80-97); PLATELET COUNT 152 10^3/uL (150-450); WHITE BLOOD COUNT 5.1 10^3/uL (4.0-10.5)
[2019-09-21] MEDS: INSULIN REG, HUMAN 100 UNIT/ML 3 ML VIAL (PYX) SUBCUT SCH ×2 (08:05→11:05)
[2019-09-21] MEDS: FAMOTIDINE 20 MG TABLET PO SCH (09:50)
[2019-09-21] MEDS ORDERED: MELOXICAM 15 MG TABLET PO SCH (10:00)
[2019-09-21] MEDS: DOCUSATE SODIUM 100 MG CAPSULE PO SCH (11:05)
[2019-09-21] MEDS ORDERED: METOPROLOL TARTRATE 50 MG TABLET PO SCH (11:15)
[2019-09-21 12:15] VITALS: BP 92/51
--- NOTE | 2019-10-03 15:08 | PDOC DISCHARGE SUMMARY ---
Impression - Admit/DC Date/PCP Admission Date/Primary Care Provider: 09/20/19 02:47 MORRO DOSHI MD Discharge Date: 09/21/19 - Assessment Summary: Patient is admitted to medical floor where she will be treated with usual supportive and symptomatic cares. She will be maintained on an IV infusion of diltiazem to control her atrial fibrillation. A cardiology consult may be obtained if required. She will receive morphine sulfate 2 to 4 mg IV every 2 hours as needed for control of pain. Serial cardiac enzymes, CBCs, metabolic profiles and magnesium levels will be obtained as needed. Patient's medications will be adjusted as required for ongoing therapy. Before meals and at bedtime Accu-Cheks will be obtained with sliding scale insulin for hyperglycemia and a hypoglycemic protocol in place. Registered dietitian consultation will be obtained for treatment of diabetes and obesity. 09/21/2019 Patient converted last night around 1800 hrs. and went from a heart rate of 150 down to 76 Morning her heart rate is stable at 60 and regular Blood pressure appears stable at 109/52 Patient has no chest pain no shortness of breath Labs this morning are stable Patient is asking to be discharged home Patient was sent out on Ativan 0.5 mg number 20 tablets Lopressor 25 mg every 12 hours in addition to Lopressor 50 mg every 12 hours so total of 75 mg every 12 hours Follow-up with cardiology [place] next week - Additional Information Resuscitation Status: Full Code Discharge Diet: As Tolerated Discharge Activity: Activity As Tolerated Referrals: MORRO DOSHI MD [Primary Care Provider] - 09/29/19 10:00 am HERLINDA NEWBERRY [NO LOCAL MD] - 10/02/19 3:15 pm Prescriptions: Lorazepam [Ativan 0.5 mg Tablet] 0.5 mg PO Q8HP PRN 7 Days #20 tab PRN Reason: Metoprolol Tartrate [Lopressor 25 mg Tablet] 25 mg PO Q12 #60 tab Metoprolol Tartrate [Lopressor 50 mg Tablet] 50 mg PO Q12H #60 tablet Home Medications: Cetirizine HCl [Zyrtec 10 mg Tablet] 10 mg PO QHS 09/20/19 Lorazepam [Ativan] 1 mg PO QHS 09/20/19 Meloxicam [Mobic] 15 mg PO DAILY 09/20/19 Oxycodone HCl/Acetaminophen [Percocet 7.5-325 mg Tablet] 1 each PO QID 09/20/19 Pregabalin [Lyrica 75 mg Capsule] 75 mg PO Q8 09/20/19 Tizanidine HCl [Zanaflex 4 mg Tablet] 4 mg PO QHS 09/20/19 Zolpidem Tartrate [Ambien] 10 mg PO QHS 09/20/19 Acetaminophen [Tylenol 325 mg Tablet] 650 mg PO Q4HP PRN tablet 09/21/19 Lorazepam [Ativan 0.5 mg Tablet] 0.5 mg PO Q8HP PRN 7 Days #20 tab 09/21/19 Metoprolol Tartrate [Lopressor 25 mg Tablet] 25 mg PO Q12 #60 tab 09/21/19 Metoprolol Tartrate [Lopressor 50 mg Tablet] 50 mg PO Q12H #60 tablet 09/21/19 History of Present Illiness History of Present Illness: NEHEMIAS SY is a 49 year old female Physical Exam Vital Signs: Temp Pulse Resp BP Pulse Ox 98.2 F 60 16 109/52 L 93 09/21/19 11:06 09/21/19 11:06 09/21/19 11:06 09/21/19 11:06 09/21/19 11:06 Results Laboratory Results: WBC 5.1 10^3/uL (4.0-10.5) 09/21/19 04:50 RBC 3.90 10^6/uL (3.72-5.28) 09/21/19 04:50 Hgb 12.1 g/dL (12.0-15.5) 09/21/19 04:50 Hct 34.8 % (36.0-47.0) L 09/21/19 04:50 MCV 89 fl (80-97) 09/21/19 04:50 MCH 31.0 pg (27.0-33.4) 09/21/19 04:50 MCHC 34.8 g/dL (32.0-36.0) 09/21/19 04:50 RDW 14.0 % (11.5-14.0) 09/21/19 04:50 Plt Count 152 10^3/uL (150-450) 09/21/19 04:50 Lymph % (Auto) 33.6 % (13-45) 09/19/19 23:21 [place] % (Auto) 7.4 % (3-13) 09/19/19 23:21 Eos % (Auto) 2.8 % (0-6) 09/19/19 23:21 Baso % (Auto) 0.8 % (0-2) 09/19/19 23:21 Absolute Neuts (auto) 3.5 10^3/uL (1.7-8.2) 09/19/19 23: Absolute Lymphs (auto) 2.1 10^3/uL (0.5-4.7) 09/19/19 23:21 Absolute Monos (auto) 0.5 10^3/uL (0.1-1.4) 09/19/19 23: Absolute Eos (auto) 0.2 10^3/uL (0.0-0.6) 09/19/19 23:21 Absolute Basos (auto) 0.1 10^3/uL (0.0-0.2) 09/19/19 23: Seg Neutrophils % 55.4 % (42-78) 09/19/19 23:21 Sodium 142.6 mmol/L (137-145) 09/21/19 04:50 Potassium 3.9 mmol/L (3.6-5.0) 09/21/19 04:50 Chloride 108 mmol/L (98-107) H 09/21/19 04:50 Carbon Dioxide 29 mmol/L (22-30) 09/21/19 04:50 Anion Gap 6 (5-19) 09/21/19 04:50 BUN 12 mg/dL (7-20) 09/21/19 04:50 Creatinine 0.57 mg/dL (0.52-1.25) 09/21/19 04:50 Est GFR ( Amer) > 60 (>60) 09/21/19 04:50 Est GFR (MDRD) Non-Af > 60 (>60) 09/21/19 04:50 Glucose 100 mg/dL (75-110) 09/21/19 04:50 POC Glucose 96 mg/dL (70-110) 09/21/19 11:03 Hemoglobin A1c % 5.2 % (4.7-6.0) 09/20/19 08:02 Calcium 9.1 mg/dL (8.4-10.2) 09/21/19 04:50 Magnesium 2.0 mg/dL (1.6-2.3) 09/21/19 04:50 Total Bilirubin 0.4 mg/dL (0.2-1.3) 09/19/19 23:21 Direct Bilirubin 0.3 mg/dL (0.0-0.4) 09/19/19 23:21 Neonat Total Bilirubin Not Reportable 09/19/19 23:21 Neonat Direct Bilirubin Not Reportable 09/19/19 23:21 Neonat Indirect Bili Not Reportable 09/19/19 23:21 AST 20 U/L (14-36) 09/19/19 23:21 ALT 16 U/L (<35) 09/19/19 23:21 Alkaline Phosphatase 46 U/L (38-126) 09/19/19 23:21 Creatine Kinase 41 U/L (30-135) 09/20/19 20:04 CK-MB (CK-2) 0.87 ng/mL (<4.55) 09/20/19 20:04 Troponin I < 0.012 ng/mL 09/20/19 20:04 Total Protein 6.5 g/dL (6.3-8.2) 09/19/19 23:21 Albumin 4.0 g/dL (3.5-5.0) 09/19/19 23:21 TSH 3.09 uIU/mL (0.47-4.68) 09/19/19 23:21 Free T4 0.95 ng/dL (0.78-2.19) 09/19/19 23:21 Free T3 pg/mL 4.20 pg/mL (2.77-5.27) 09/19/19 23:21 1809/20/19 09/20/19 23:21 02:20 08:02 CK-MB (CK-2) 1.02 1.04 Troponin I < 0.012 < 0.012 < 0.012 09/20/19 09/20/19 14:33 20:04 CK-MB (CK-2) 1.03 0.87 Troponin I < 0.012 < 0.012 Stroke Is this a Stroke Patient?: No Acute Heart Failure - Is this a Heart Failure Patient?: No
== END 2019-09-21 12:45 | disposition home or self-care (01) | DRG 310 ==
LOC: ER 23:11 → EH 09-20 02:47 → 3W 09-20 04:05
PROVIDERS: ADMIT Emergency Medicine; ATTEND Emergency Medicine
DX: I48.0 Paroxysmal atrial fibrillation (principal); D64.9 Anemia, unspecified; E11.9 Type 2 diabetes mellitus without complications; J45.909 Unspecified asthma, uncomplicated; E66.01 Morbid (severe) obesity due to excess calories; Z83.3 Family history of diabetes mellitus
CPT/HCPCS: 36415; 80048; 80053; 82550; 82553; 82962; 83036; 83735; 84439; 84443; 84481; 84484; 85025; 85027; 90686; 93005; 93010; 99291; J1644; J2060; J2405; J2550; J3490; J7030